=== PATIENT | male | born 1955 | race Two or more races ===

== ENCOUNTER 2022-10-27 09:48 | Inpatient (IN) | payer MEDICARE, MEDICAID ==
[2022-10-27] VITALS (46 sets, daily range): BP systolic 78–229; BP diastolic 31–125
[~2022-10-27] VITALS: Ht 172.7 cm; Wt 110.7 kg
[2022-10-27] MEDS ORDERED: IOHEXOL-350 100 ML BOTTLE ONE (10:17)
[2022-10-27] MEDS ORDERED: TENECTEPLASE 50MG/VIAL IV ONE (10:30)
[2022-10-27 10:34] LABS: BASOPHILS % 0.3 % (0.0-2.0); EOSINOPHILS % 0.8 % (0.0-5.0); HEMOGLOBIN. 14.7 g/dL (14.0-18.0); LYMPHOCYTES % 7.5 % (20.0-50.0); MEAN CORPUSCULAR HEMOGLOBIN 31.5 pg (28.0-32.0); MEAN CORPUSCULAR VOLUME 94.1 fL (80.0-94.0); MEAN PLATELET VOLUME 8.3 fl (7.4-10.4); MONOCYTES % 6.4 % (2.0-8.0); PLATELET 207 x1000/uL (130-400); RED BLOOD CELL COUNT 4.68 mill/uL (4.7-6.1); RED CELL DISTRIBUTION WIDTH 14.8 % (11.6-14.6)
[2022-10-27 10:42] LABS: PROTHROMBIN TIME 10.8 sec (9.6-11.0)
[2022-10-27 10:45] LABS: CHLORIDE 102 mEq/L (98-107)
[2022-10-27 10:55] LABS: ETHANOL BLOOD < 10 mg/dL
[2022-10-27] MEDS ORDERED: *TENECTEPLASE FOR AIS XX SCH (11:00)
[2022-10-27 11:58] LABS: CLARITY URINE CLEAR (CLEAR); COLOR URINE DARK YELLOW (YELLOW); KETONES URINE NEGATIVE (NEGATIVE); LEUKOCYTE ESTERASE URINE NEGATIVE (NEGATIVE); NITRITE URINE NEGATIVE (NEGATIVE); OCCULT BLOOD URINE NEGATIVE (NEGATIVE); PROTEIN URINE NEGATIVE (NEGATIVE); SPECIFIC GRAVITY URINE 1.067 (1.005-1.030); UROBILINOGEN URINE 0.2 E.U./dL (0.2-1.0)
[2022-10-27] MEDS ORDERED: KETOROLAC 30MG/ML VIAL IV ONE (12:00)
[2022-10-27] MEDS ORDERED: ONDANSETRON HCL 4MG/2ML INJ IV ONE (12:00)
[2022-10-27 12:23] LABS: *AMPHETAMINES SCREEN URINE NEGATIVE (NEGATIVE); *BARBITURATES SCREEN URINE NEGATIVE (NEGATIVE); *BENZODIAZEPINES SCREEN URINE NEGATIVE (NEGATIVE); *COCAINE SCREEN URINE NEGATIVE (NEGATIVE); CANNABINOID URINE SCREEN NEGATIVE (NEGATIVE); METHADONE URINE SCREEN NEGATIVE (NEGATIVE); OPIATES URINE SCREEN NEGATIVE (NEGATIVE); PHENCYCLIDINE URINE SCREEN NEGATIVE (NEGATIVE)
[2022-10-27] MEDS ORDERED: ONDANSETRON HCL 4MG/2ML INJ IV PRN (12:45)
[2022-10-27] MEDS ORDERED: ACETAMINOPHEN 325MG TABLET PO PRN (12:45)
[2022-10-27] MEDS ORDERED: LORAZEPAM 2MG/ML CPJ IV NR (13:15)
[2022-10-27 13:25] LABS: BG BASE EXCESS -13.9 mmol/L (-2.0-2.0); BG CARBOXYHEMOGLOBIN 0.8 % (0.5-1.5); BG DEOXYHEMOGLOBIN 2.9 % (0.0-5.0); BG FRACTION INSPIRED OXYGEN 40; BG HCO3 ACT 12.3 mmol/L (22.0-26.0); BG OXYGEN SATURATION 97.1 % (92.0-98.5); BG OXYHEMOGLOBIN 96.3 % (94.0-97.0); BG PCO2 30.8 mmHg (35.0-45.0); BG PO2 130.2 mmHg (75.0-100.0); BG SAMPLE SITE RIGHT RADIAL; BG TOTAL HEMOGLOBIN 16.8 g/dL (12.0-18.0); BG VENT MODE NASAL CANNULA
[2022-10-27] MEDS ORDERED: PROPOFOL 10MG/ML 100ML 100 ML IV PRN (13:30)
[2022-10-27] MEDS ORDERED: NICARDIPINE 100 MG in SODIUM CHLORIDE 0.9% 60 ML IV PRN (14:15)
[2022-10-27 14:42] LABS: BG BASE EXCESS -11.7 mmol/L (-2.0-2.0); BG CARBOXYHEMOGLOBIN 0.5 % (0.5-1.5); BG DEOXYHEMOGLOBIN 2.8 % (0.0-5.0); BG FRACTION INSPIRED OXYGEN 100; BG HCO3 ACT 18.4 mmol/L (22.0-26.0); BG METHEMOGLOBIN 0.2 % (0.0-1.5); BG OXYGEN SATURATION 97.2 % (92.0-98.5); BG OXYHEMOGLOBIN 96.5 % (94.0-97.0); BG PCO2 58.1 mmHg (35.0-45.0); BG PH 7.118 (7.350-7.450); BG PO2 145.6 mmHg (75.0-100.0); BG SAMPLE SITE RIGHT RADIAL; BG TOTAL HEMOGLOBIN 16.5 g/dL (12.0-18.0); BG VENT MODE VENT - AC
[2022-10-27] MEDS: LEVETIRACETAM 500MG PREMIX 100 ML IV SCH ×2 (15:06→20:13)
[2022-10-27] MEDS: DEXT 5%/0.45% NACL 1000ML 1,000 ML IV SCH (15:07)
[2022-10-27 16:26] LABS: CREATINE KINASE 115 IU/L (39-308)
[2022-10-27 16:38] LABS: BG BASE EXCESS -4.9 mmol/L (-2.0-2.0); BG CARBOXYHEMOGLOBIN 0.6 % (0.5-1.5); BG DEOXYHEMOGLOBIN 6.9 % (0.0-5.0); BG FRACTION INSPIRED OXYGEN 80; BG HCO3 ACT 20.6 mmol/L (22.0-26.0); BG METHEMOGLOBIN 0.3 % (0.0-1.5); BG OXYHEMOGLOBIN 92.2 % (94.0-97.0); BG PO2 74.7 mmHg (75.0-100.0); BG SAMPLE SITE RIGHT RADIAL; BG TOTAL HEMOGLOBIN 16.1 g/dL (12.0-18.0); BG VENT MODE VENT - AC
[2022-10-27] MEDS ORDERED: MIDAZOLAM HCL 100 MG in SODIUM CHLORIDE 0.9% 80 ML IV PRN (20:00)
[2022-10-27] MEDS ORDERED: FENTANYL CITRATE/PF 2,500 MCG in SODIUM CHLORIDE 0.9% 200 ML IV PRN (20:00)
[2022-10-27] MEDS: ATORVASTATIN CALCIUM 40MG TABLET PO SCH (20:13)
[2022-10-28] VITALS (72 sets, daily range): BP systolic 98–181; BP diastolic 54–107
[2022-10-28] MEDS: DEXT 5%/0.45% NACL 1000ML 1,000 ML IV SCH ×2 (03:02→15:55)
[2022-10-28 06:32] LABS: HEMATOCRIT. 42.5 % (42.0-52.0); HEMOGLOBIN. 14.1 g/dL (14.0-18.0); MEAN CORPUSCULAR HEMOGLOBIN 31.2 pg (28.0-32.0); MEAN CORPUSCULAR VOLUME 93.8 fL (80.0-94.0); MEAN PLATELET VOLUME 8.4 fl (7.4-10.4); PLATELET 194 x1000/uL (130-400); RED BLOOD CELL COUNT 4.53 mill/uL (4.7-6.1); RED CELL DISTRIBUTION WIDTH 14.9 % (11.6-14.6)
[2022-10-28 06:41] LABS: CHLORIDE 107 mEq/L (98-107)
[2022-10-28 06:48] LABS: HDL CHOLESTEROL 39 mg/dL (40-59); LDL CHOLESTEROL 120 mg/dL (5-100)
[2022-10-28 08:26] LABS: BG BASE EXCESS -0.3 mmol/L (-2.0-2.0); BG CARBOXYHEMOGLOBIN 0.5 % (0.5-1.5); BG DEOXYHEMOGLOBIN 5.7 % (0.0-5.0); BG HCO3 ACT 22.9 mmol/L (22.0-26.0); BG METHEMOGLOBIN 0.3 % (0.0-1.5); BG OXYGEN SATURATION 94.3 % (92.0-98.5); BG OXYHEMOGLOBIN 93.5 % (94.0-97.0); BG PCO2 33.5 mmHg (35.0-45.0); BG PH 7.453 (7.350-7.450); BG PO2 73.1 mmHg (75.0-100.0); BG SAMPLE SITE RIGHT RADIAL; BG VENT MODE VENT - AC
[2022-10-28] MEDS ORDERED: ASPIRIN 81MG TABLET PO SCH (09:00)
[2022-10-28] MEDS: PANTOPRAZOLE SODIUM 40 MG/VIAL IV SCH (09:53)
[2022-10-28] MEDS: LEVETIRACETAM 500MG PREMIX 100 ML IV SCH ×2 (09:53→20:09)
[2022-10-28 10:48] LABS: BG BASE EXCESS -1.6 mmol/L (-2.0-2.0); BG CARBOXYHEMOGLOBIN 0.4 % (0.5-1.5); BG DEOXYHEMOGLOBIN 5.7 % (0.0-5.0); BG FRACTION INSPIRED OXYGEN 40; BG HCO3 ACT 22.1 mmol/L (22.0-26.0); BG METHEMOGLOBIN 0.3 % (0.0-1.5); BG OXYGEN SATURATION 94.3 % (92.0-98.5); BG OXYHEMOGLOBIN 93.6 % (94.0-97.0); BG PCO2 34.5 mmHg (35.0-45.0); BG PH 7.424 (7.350-7.450); BG PO2 76.1 mmHg (75.0-100.0); BG SAMPLE SITE RIGHT RADIAL; BG TOTAL HEMOGLOBIN 14.9 g/dL (12.0-18.0); BG VENT MODE VENT - CPAP
[2022-10-28 11:58] LABS: PLATELET ESTIMATE NORMAL
[2022-10-28] MEDS: ENOXAPARIN 120MG/0.8ML SYR SUBCUT SCH ×2 (13:31→23:05)
[2022-10-28] MEDS: AMLODIPINE 10MG TABLET PO SCH (14:55)
[2022-10-28] MEDS: ATORVASTATIN CALCIUM 40MG TABLET PO SCH (20:09)
[2022-10-29] VITALS (13 sets, daily range): BP systolic 128–156; BP diastolic 65–101
[2022-10-29] MEDS: DEXT 5%/0.45% NACL 1000ML 1,000 ML IV SCH ×2 (05:59→18:35)
[2022-10-29] MEDS: LEVETIRACETAM 500MG PREMIX 100 ML IV SCH (09:12)
[2022-10-29] MEDS: AMLODIPINE 10MG TABLET PO SCH (09:12)
[2022-10-29] MEDS: PANTOPRAZOLE SODIUM 40 MG/VIAL IV SCH (09:12)
[2022-10-29] MEDS ORDERED: THROAT LOZENGES-BENZOCAINE/MENTH/CETYLPYRD CL LOZENGES MM PRN (10:00)
[2022-10-29 13:16] LABS: BG BASE EXCESS -0.2 mmol/L (-2.0-2.0); BG CARBOXYHEMOGLOBIN 0.7 % (0.5-1.5); BG DEOXYHEMOGLOBIN 7.5 % (0.0-5.0); BG FRACTION INSPIRED OXYGEN 21; BG HCO3 ACT 22.7 mmol/L (22.0-26.0); BG METHEMOGLOBIN 0.3 % (0.0-1.5); BG OXYGEN SATURATION 92.4 % (92.0-98.5); BG OXYHEMOGLOBIN 91.5 % (94.0-97.0); BG PCO2 32.6 mmHg (35.0-45.0); BG PH 7.461 (7.350-7.450); BG PO2 62.7 mmHg (75.0-100.0); BG SAMPLE SITE RIGHT RADIAL; BG TOTAL HEMOGLOBIN 14.9 g/dL (12.0-18.0); BG VENT MODE ROOM AIR
[2022-10-29] MEDS: ENOXAPARIN 120MG/0.8ML SYR SUBCUT SCH (13:53)
[2022-10-29] MEDS ORDERED: AMLO10TA80 PO (17:20)
[2022-10-29] MEDS ORDERED: APIX5TAB MT (17:20)
[2022-10-29] MEDS ORDERED: KEPP500 MT (17:20)
[2022-10-29] MEDS ORDERED: LIP40 PO (17:20)
[2022-10-29] MEDS: ATORVASTATIN CALCIUM 40MG TABLET PO SCH (20:58)
[2022-10-29] MEDS ORDERED: LEVETIRACETAM 500MG TABLET PO SCH (21:00)
[2022-10-30] MEDS ORDERED: FAMOTIDINE 20MG/2ML VIAL IV SCH (09:00)
[2022-11-01 15:09] LABS: ANTI-NUCLEAR ANTIBODIES DIRECT Negative (Negative)
[2022-11-03 13:06] LABS: ANTI-CARDIOLIPIN AB IGG < 9 GPL U/mL (0-14)
[2022-11-03 19:09] LABS: ANTI-MYELOPEROXIDASE AB < 0.2 units (0.0-0.9); ANTI-PROTEINASE 3 ABS < 0.2 units (0.0-0.9)
[2022-11-04 13:10] LABS: ATYPICAL P-ANCA <1:20 titer (Neg:<1:20); CYTOPLASMIC C-ANCA <1:20 titer (Neg:<1:20); PERINUCLEAR P-ANCA <1:20 titer (Neg:<1:20)
== END 2022-10-29 21:50 | disposition home or self-care (01) | DRG 61 ==
LOC: ER 09:48 → MICUSO 11:57 → EDBEDREQTM 12:01 → EDBEDREQSVC 12:01 → EDBEDREQ 12:01 → 7EST 10-29 10:30
PROVIDERS: ADMIT Internal Medicine; ATTEND Internal Medicine
PROC: 3E03317 Introduction of Other Thrombolytic into Peripheral Vein, Percutaneous Approach (ICD-10-PCS; 2022-10-27)
PROC: 0BH17EZ Insertion of Endotracheal Airway into Trachea, Via Natural or Artificial Opening (ICD-10-PCS; principal; 2022-10-28)
PROC: 5A1935Z Respiratory Ventilation, Less than 24 Consecutive Hours (ICD-10-PCS; 2022-10-28)
PROC: 4A10X4Z Monitoring of Central Nervous Electrical Activity, External Approach (ICD-10-PCS; 2022-10-28)
DX: I63.9 Cerebral infarction, unspecified (principal); J96.00 Acute respiratory failure, unspecified whether with hypoxia or hypercapnia; E87.1 Hypo-osmolality and hyponatremia; E44.0 Moderate protein-calorie malnutrition; G81.91 Hemiplegia, unspecified affecting right dominant side; G93.40 Encephalopathy, unspecified; R47.01 Aphasia; Z68.37 Body mass index [BMI] 37.0-37.9, adult; R29.704 NIHSS score 4; G40.909 Epilepsy, unspecified, not intractable, without status epilepticus; E66.9 Obesity, unspecified; I10 Essential (primary) hypertension; G93.89 Other specified disorders of brain; R47.1 Dysarthria and anarthria
CPT/HCPCS: 31500; 36415; 36600; 70496; 70498; 70551; 71045; 80048; 80053; 80061; 80305; 80320; 81003; 81403; 81407; 81479; 82140; 82375; 82550; 82805; 83520; 83605; 84145; 84484; 85025; 86038; 86147; 86256; 87070; 93005; 93306; 93970; 94002; 94003; 95816; 99291; C9113; J1650; J1885; J1953; J2405; J2704; J2997; J3010; J7050; Q9967; A4315; G0480